=== PATIENT | male | born 1960 | race Caucasian/White ===

== ENCOUNTER 2019-10-25 14:32 | Emergency (ER) | payer MEDICARE ==
[~2019-10-25] VITALS: Ht 172.7 cm; Wt 70.3 kg
[2019-10-25 15:16] LABS: Influenza A Negative (NEGATIVE); Influenza B Negative (NEGATIVE)
[2019-10-25 15:20] LABS: Hemoglobin 13.6 g/dL (13.5-17.5); Mean Corpuscular HGB Conc 32.4 g/dL (31.5-36.5); Mean Corpuscular Volume 90 fL (80-100); NRBC ABSOLUTE 0.26 K/mm3 (0.00-0.02); NRBC Auto 0.3 /100 WBC (0.0-0.2); Platelet Count 78 K/mm3 (150-400); RDW Coefficient Variation 15.7 % (11.7-14.2); RDW Standard Deviation 51.4 fL (35.1-46.3); Red Blood Cell Count 4.69 M/mm3 (4.30-5.90)
[2019-10-25 15:36] LABS: White Blood Cell Count 86.45 K/mm3 (4.00-11.30)
[2019-10-25 15:52] LABS: Alanine Aminotransfer (ALT/SGP 51 U/L (12-78); Albumin, Blood 3.9 g/dL (3.4-5.0); Albumin/Globulin Ratio 1.3 (0.8-1.8); Alk Phos 137 U/L (50-136); Anion Gap 8 mmol/L (6-16); Aspartate Aminotrans (AST/SGOT 46 U/L (12-37); Bilirubin, Total 0.5 mg/dL (0.1-1.0); Blood Urea Nitrogen 15 mg/dL (8-24); Bun/Creatinine Ratio 16.1 (12.0-20.0); CO2, Blood 27 mmol/L (21-32); Calcium, Blood 11.9 mg/dL (8.5-10.1); Chloride, Blood 105 mmol/L (98-108); Creatinine, Blood 0.93 mg/dL (0.60-1.20); Globulin, Blood 3.1 g/dL (2.2-4.0); Glomerular Filtration Rate >60 (60-); Glucose, Blood 92 mg/dL (70-99); Potassium, Blood 4.1 mmol/L (3.5-5.5); Sodium, Blood 140 mmol/L (136-145); Troponin I <0.015 ng/mL (0.000-0.040)
[2019-10-25 16:45] LABS: BAND PERCENT MAN 4 % (0-8); BASOPHILS PERCENT MAN 0 % (0-2); EOSINOPHILS PERCENT MAN 0 % (0-6); LYMPHOCYTES % ATYPICAL MANUAL 3 % (0-0); LYMPHOCYTES ABSOLUTE MAN 71.75 K/mm3 (0.84-5.20); LYMPHOCYTES PERCENT MAN 80 % (21-46); METAMYELOCYTE ABSOLUTE MAN 1.72 K/mm3 (0.00-0.00); METAMYELOCYTE PERCENT MAN 2 % (0-0); MONOCYTES ABSOLUTE MAN 3.45 K/mm3 (0.16-1.47); MONOCYTES PERCENT MAN 4 % (4-13); MYELOCYTE ABSOLUTE MAN 0.86 K/mm3 (0.00-0.00); MYELOCYTE PERCENT MAN 1 % (0-0); NEUTROPHILS ABSOLUTE MAN 8.64 K/mm3 (1.96-9.15); SEG NEUTROPHILS PERCENT MAN 6 % (41-73); TOTAL CELLS COUNTED 100
[2019-10-25] MEDS ORDERED: LEVFLO500 PO (18:24)
[2019-10-25] MEDS ORDERED: Norco 7.5-3251 EACH PO (18:25)
== END 2019-10-25 18:45 | disposition home or self-care (01) ==
LOC: ER 14:32
PROVIDERS: Physician Assistant
DX: R04.2 Hemoptysis (principal); Z85.72 Personal history of non-Hodgkin lymphomas; F17.210 Nicotine dependence, cigarettes, uncomplicated
CPT/HCPCS: 71046; 71260; 80053; 84484; 85025; 87804; 93005; 93010; 99284-25; Q9967